=== PATIENT | female | born 1930 | race Caucasian/White ===

== ENCOUNTER 2016-05-22 08:00 | Outpatient (CLI) | payer MEDICARE | END 2016-05-22 23:59 | disposition home or self-care (01) | DX: N39.0 Urinary tract infection, site not specified (principal) ==

== ENCOUNTER 2016-07-15 14:10 | Outpatient (CLI) | payer MEDICARE | END 2016-07-15 14:11 | disposition home or self-care (01) | DX: I10 Essential (primary) hypertension (principal) ==

== ENCOUNTER 2016-11-19 14:22 | Outpatient (CLI) | payer MEDICARE ==
--- NOTE | 2016-11-20 20:06 | Mammography Report ---
DIGITAL SCREENING MAMMOGRAM: 11/19/2016 CLINICAL INDICATION: An 85-year-old with history of late childbearing, family history of breast canc er for screening. COMPARISON: 11/2015, 09/2014, 01/2012, 12/2010. TECHNIQUE: Routine CC and MLO projections were obtained of the breasts. The breasts again demonstrate heterogeneously dense fibroglandular parenchyma bilaterally. Coarse an d punctate, typically benign calcifications are present. No suspicious masses, clustered microcalcif ications, or regions of architectural distortion are identified. IMPRESSION: BENIGN FINDINGS. RECOMMENDATION: ROUTINE ANNUAL SCREENING UNLESS OTHERWISE CLINICALLY INDICATED. BIRADS CATEGORY: 2, BENIGN FINDINGS. STANDARD QUALIFYING STATEMENTS 1. This examination was reviewed with the aid of Computed-Aided Detection (CAD). 2. A negative or benign imaging report should not delay biopsy if clinically suspicious findings are present. Consider surgical consultation if warranted. More than 5% of cancers are not identified b y imaging. 3. Dense breasts may obscure an underlying neoplasm. JOB #: [id number] EXT JOB #:[id number]
== END 2016-11-19 14:23 | disposition home or self-care (01) ==
LOC: DI.S 14:22
PROVIDERS: ATTEND Internal Medicine
DX: Z12.31 Encounter for screening mammogram for malignant neoplasm of breast (principal); Z80.3 Family history of malignant neoplasm of breast
CPT/HCPCS: 77067

== ENCOUNTER 2017-04-22 14:29 | Outpatient (CLI) | payer MEDICARE ==
[2017-04-22 19:01] LABS: BASOPHILS % (AUTO) 0.7 %; EOSINOPHILS # (AUTO) 0.2 10^3/uL (0.0-0.7); EOSINOPHILS % (AUTO) 2.8 %; HCT - HEMATOCRIT 39.6 % (37.0-47.0); HGB - HEMOGLOBIN 13.3 g/dL (12.0-16.0); LYMPHOCYTES # (AUTO) 2.2 10^3/uL (1.5-3.5); LYMPHOCYTES % (AUTO) 35.2 %; MEAN CORPUSCULAR HEMOGLOBIN 30.4 pg (27.0-31.0); MEAN CORPUSCULAR HGB CONC 33.7 g/dL (32.0-36.0); MEAN CORPUSCULAR VOLUME 90.1 fL (81.0-99.0); MEAN PLATELET VOLUME 8.2 fL (7.9-10.8); MONOCYTES # (AUTO) 0.6 10^3/uL (0.0-1.0); MONOCYTES % (AUTO) 9.4 %; NEUTROPHILS # (AUTO) 3.3 10^3/uL (1.5-6.6); NEUTROPHILS % (AUTO) 51.9 %; RED BLOOD COUNT 4.39 10^6/uL (4.20-5.40); RED CELL DISTRIBUTION WIDTH 12.9 % (12.0-15.0); UNCORRECTED WHITE BLOOD COUNT 6.4 x10^3/uL; WHITE BLOOD COUNT 6.4 x10^3/uL (4.8-10.8)
[2017-04-22 19:37] LABS: ALBUMIN/GLOBULIN RATIO 1.2 (1.0-2.2); BILIRUBIN,TOTAL 0.6 mg/dL (0.2-1.0); BUN - BLOOD UREA NITROGEN 22 mg/dL (6-20); CALCIUM 9.4 mg/dL (8.5-10.3); CARBON DIOXIDE - CO2 29 mmol/L (21-32); CHLORIDE 103 mmol/L (101-111); CREATININE 0.8 mg/dL (0.4-1.0); GFR - MDRD 68 (>89); GLUCOSE 90 mg/dL (70-100); POTASSIUM 4.2 mmol/L (3.5-5.0); SODIUM 137 mmol/L (135-145); TOTAL PROTEIN 7.2 g/dL (6.7-8.2)
== END 2017-04-22 14:30 | disposition home or self-care (01) ==
LOC: LAB.F 14:29
PROVIDERS: ATTEND Family Medicine
DX: I10 Essential (primary) hypertension (principal); R53.83 Other fatigue
CPT/HCPCS: 36415; 80053; 84443; 85025

== ENCOUNTER 2017-10-16 13:29 | Outpatient (CLI) | payer MEDICARE ==
--- NOTE | 2017-10-16 14:57 | XRAY Report ---
CHEST TWO VIEWS: 10/16/2017 HISTORY: Wheezing. COMPARISON: 06/21/2012. FINDINGS: Multiple surgical clips right upper quadrant. Normal heart size. No pleural effusion or pneumothorax. Lungs are clear. No acute findings compared with 06/21/2012. Mild degenerative change in the spine. IMPRESSION: NEGATIVE FOR ACUTE FINDINGS OR SIGNIFICANT CHANGE SINCE 06/21/2012. CLEAR LUNGS. TD: 10/16/2017 14:13
[2017-10-16] MEDS ORDERED: ALBUTEROL NEB 2.5 MG/3 ML INH ONE (16:39)
[2017-10-16] MEDS ORDERED: ALBUTEROL NEB 2.5 MG/3 ML INH PRN (16:39)
== END 2017-10-16 13:30 | disposition home or self-care (01) ==
LOC: RT 13:29
PROVIDERS: ATTEND Internal Medicine
DX: R06.2 Wheezing (principal)
CPT/HCPCS: 71046; 94060

== ENCOUNTER 2018-03-30 13:52 | Outpatient (CLI) | payer MEDICARE ==
--- NOTE | 2018-03-30 15:48 | Mammography Report ---
Reason: RIGHT BREAST MASS Procedure Date: 03/30/2018 Accession Number: [id number] / [id number] Procedure: [facility] - Diagnostic Dig Bilat CPT Code: FULL RESULT: EXAM: Diagnostic Dig Bilat DATE: 03/30/2018 2:50 PM CLINICAL HISTORY: 87-year-old female presents with a palpable right breast mass. TECHNIQUE: Bilateral CC and MLO views were obtained in 2-D and 3-D technique. Focused breast ultrasound of the palpable finding in the right breast was also performed. COMPARISON: 11/19/2016, 11/15/2015, 09/12/2014, 01/20/2012. FINDINGS: The breasts demonstrate heterogeneously dense fibroglandular parenchyma bilaterally. There are coarse typically benign calcifications in both breasts. No mammographic finding corresponds to the palpable marker in the right breast. Normal breast tissue is seen in the region of interest on tomography. No suspicious masses, calcifications or architectural distortion are identified. Focused breast ultrasound of the palpable area in the right breast demonstrates a 4 mm simple cyst, typically benign finding which corresponds to the patient's presentation. IMPRESSION: Benign findings RECOMMENDATION: Recommend routine annual Screening mammography unless otherwise clinically indicated. BIRADS CATEGORY 2: Benign findings STANDARD QUALIFYING STATEMENTS: 1. This examination was not reviewed with the aid of Computer-Aided Detection (CAD). 2. A negative or benign imaging report should not delay biopsy if clinically suspicious findings are present. Consider surgical consultation if warrented. More than 5% of cancers are not identified by imaging. 3. Dense breasts may obscure an underlying neoplasm. 4. This examination was reviewed with the aid of 3D imaging (tomography).
== END 2018-03-30 13:53 | disposition home or self-care (01) ==
LOC: DI 13:52
PROVIDERS: ATTEND Nurse Practitioner Family
DX: N60.01 Solitary cyst of right breast (principal)
CPT/HCPCS: 76642; 77066

== ENCOUNTER 2018-12-15 11:00 | Outpatient (CLI) | payer MEDICARE ==
[2018-12-15] MEDS ORDERED: IOVERSOL 320 100 ML VIAL IVP ONE ×2 (11:25→14:23)
[2018-12-15 11:27] LABS: CALCIUM 9.8 mg/dL (8.5-10.3); CREATININE 0.8 mg/dL (0.4-1.0)
--- NOTE | 2018-12-17 11:28 | CT Report ---
Reason: CHEST PAIN Procedure Date: 12/15/2018 Accession Number: [id number] / [id number] Procedure: CT - ANGIO CHEST W/WO CPT Code: FULL RESULT: EXAM: CT ANGIOGRAM CHEST EXAM DATE: 12/15/2018 12:24 PM. CLINICAL HISTORY: CHEST PAIN. COMPARISON: None. TECHNIQUE: Routine helical imaging was performed through the chest in the pulmonary arterial phase. IV Contrast: OPTI 320 80ML. Reconstructions: Coronal 3-D MIP reconstructions.Sagittal and coronal. In accordance with CT protocol optimization, one or more of the following dose reduction techniques were utilized for this exam: automated exposure control, adjustment of mA and/or KV based on patient size, or use of iterative reconstructive technique. FINDINGS: Pulmonary Arteries: Diagnostic quality: Adequate through the segmental arteries. No evidence for acute or chronic pulmonary emboli. Lungs/Pleura: Nodular and linear increased lung markings are noted in the right upper lobe of the lung. The largest nodular density measures approximately 8 mm (image 60 of series 5). There is no pleural effusion or pneumothorax seen. Mediastinum: No mediastinal lymphadenopathy is identified. There is atherosclerosis of the aorta. Upper Abdomen: Low density lesions are seen within the liver consistent with this. There are postoperative changes consistent with a cholecystectomy. There is a moderate hiatal hernia. Degenerative changes of the visualized spine are noted. Other: None. IMPRESSION: No evidence of a pulmonary embolus. Nodular and linear increased lung markings in the right upper lobe of the lung that may represent an infectious, granulomatous and less likely neoplastic process. Atherosclerosis of the aorta. RADIA
== END 2018-12-15 11:01 | disposition home or self-care (01) ==
LOC: DI 11:00
PROVIDERS: ATTEND Nurse Practitioner Family
DX: R91.8 Other nonspecific abnormal finding of lung field (principal); I70.0 Atherosclerosis of aorta; R07.9 Chest pain, unspecified
CPT/HCPCS: 36415; 71275; 80048; Q9967

== ENCOUNTER 2021-07-03 12:57 | Outpatient (CLI) | payer MEDICARE ==
--- NOTE | 2021-07-03 14:18 | XRAY Report ---
PROCEDURE: Hip w/Pelvis 2-3V LT INDICATIONS: LEFT HIP PAIN TECHNIQUE: AP pelvis with lateral view(s) of the left hip(s). COMPARISON: None. FINDINGS: Bones: No fractures or dislocations. Pelvic ring appears intact. No suspicious bony lesions. Mild bilateral hip joint space narrowing and periarticular osteophyte formation. Soft tissues: The visualized bowel gas pattern is normal. No suspicious soft tissue calcifications. IMPRESSION: Bilateral hip osteoarthritis. No acute fracture. No osseous lesion. If symptoms and/or c linical suspicion for pathology continue, further assessment with repeat plain films, or advanced lorenzo ging (e.g., CT, MRI, or bone scan) is recommended for further assessment. Reviewed by: Rishabh Hudson MD on 07/03/2021 2:17 PM PST Approved by: Rishabh Hudson MD on 07/03/2021 2:17 PM PST Station ID: [id number]
== END 2021-07-03 12:58 | disposition home or self-care (01) ==
LOC: DI.S 12:57
PROVIDERS: ATTEND Nurse Practitioner Family
DX: M16.0 Bilateral primary osteoarthritis of hip (principal)